=== PATIENT | female | born 1990 | race Caucasian/White ===

== ENCOUNTER 2019-06-29 01:04 | Outpatient (CLI) | payer SELFPAY ==
--- NOTE | 2019-06-29 08:00 | DI.US_ITS ---
EXAM: US PELVIS TRANSVAGINAL CLINICAL HISTORY: IUD PLACEMENT, MIRENA PLACED 2014, ON EXAM NO STRINGS, MILD PELVIC PAIN. TECHNIQUE: Ultrasound performed using standard protocol. COMPARISON: No exams were available for comparison FINDINGS: The uterus measures 8.5 cm in length, 4.4 cm in height and 7.2 cm in width with an endometrial stripe thickness of 3.1 mm. IUD is noted in the endometrial cavity, strings are identified in the lower ut erine segment and cervix. Right ovary measures 3 x 1.5 x 1.6 cm. The left ovary 2.6 x 2.1 x 1.7 cm. There is a small quantity of free fluid in the cul-de-sac. IMPRESSION: Intrauterine IUD is noted in good position, the strings end in the proximal portion the cervix.
== END 2019-06-29 01:24 ==
PROVIDERS: PCP Internal Medicine; Visit Provider Nurse Practitioner Women's Health
DX: R10.2 Pelvic and perineal pain (principal); Z30.431 Encounter for routine checking of intrauterine contraceptive device
CPT/HCPCS: 76830; 76856

== ENCOUNTER 2020-08-30 20:26 | Outpatient (REF) | payer SELFPAY ==
[2020-09-02 15:56] LABS: COVID-19 RT-PCR Result NEGATIVE (Negative)
== END 2020-08-30 20:46 ==
LOC: NCHCN 20:26
PROVIDERS: PCP Internal Medicine; Visit Provider Nurse Practitioner Family
DX: Z11.59 Encounter for screening for other viral diseases (principal)
CPT/HCPCS: U0003

== ENCOUNTER 2022-01-25 18:40 | Outpatient (REF) | payer SELFPAY ==
[2022-01-25 19:20] LABS: TSH (W/Ref FT4) 0.92 uIU/mL (0.36-3.74)
== END 2022-01-25 18:41 | disposition home or self-care (01) ==
LOC: NCHCN 18:40
PROVIDERS: PCP Internal Medicine; Visit Provider Physician Assistant
DX: R63.5 Abnormal weight gain (principal); R68.89 Other general symptoms and signs
CPT/HCPCS: 84443

== ENCOUNTER 2023-11-13 13:00 | Outpatient (REF) | payer BC, SELFPAY | END 2023-11-13 13:01 | disposition home or self-care (01) | LOC: NCHCN 13:00 | PROVIDERS: PCP Internal Medicine; Visit Provider Physician Assistant | DX: R10.31 Right lower quadrant pain (principal) | CPT/HCPCS: 87086 ==

== ENCOUNTER 2023-12-19 10:04 | Outpatient (REF) | payer BC, SELFPAY ==
[2023-12-19 11:37] LABS: Bilirubin Negative (Negative); Blood Negative (Negative); Clarity Clear (Clear); Glucose Negative (Negative); Ketones Negative (Negative); Leukocyte Esterase Small (Negative); Nitrite Negative (Negative); Urobilinogen 0.2 mg/dL (Up to 0.2)
[2023-12-19 11:54] LABS: Bacteria Few HPF (Negative); C & S Indicated? No; Casts Negative LPF (Negative); Crystals Negative HPF (Negative); Epithelial Cells Few HPF (Negative); Mucus Negative (Negative); Other Cells Negative (Negative); RBC Negative HPF (0-2)
== END 2023-12-19 10:05 | disposition home or self-care (01) ==
LOC: LBN 10:04
PROVIDERS: PCP Internal Medicine; Visit Provider Nurse Practitioner Gerontology
DX: N39.0 Urinary tract infection, site not specified (principal); N20.0 Calculus of kidney
CPT/HCPCS: 81003; 81015; 87086

== ENCOUNTER 2024-01-24 14:43 | Outpatient (REF) | payer BC, SELFPAY ==
[2024-01-24 19:03] LABS: Abs Immature Grans 0.02 10^3/uL (0.0-0.06); Absolute Basophil Count 0.02 10^3/uL (0.0-0.2); Absolute Eosinophil Count 0.15 10^3/uL (0.0-0.7); Absolute Lymphocyte Count 2.06 10^3/uL (1.2-3.4); Absolute Monocyte Count 0.41 10^3/uL (0.1-0.8); Absolute Neutrophil Count 3.16 10^3/uL (1.2-6.7); Basophils % 0.3 %; Eosinophils % 2.6 %; HCT 43.1 % (36.0-46.0); HGB 14.4 g/dL (11.2-15.7); Immature Grans % 0.3 %; Lymphocytes % 35.4 %; MCH 31.4 pg (27.0-33.0); MCHC 33.4 % (32.0-36.0); MCV 94 fL (80-95); MPV 10.1 fL (8.0-11.0); Neutrophils % 54.4 %; Platelet Count 275 10^3/uL (130-400); RBC 4.58 10^6/uL (3.93-5.22); RDW 11.5 % (11.7-14.6); RDW-SD 39.3 fL; WBC 5.82 10^3/uL (4.4-10.8)
[2024-01-24 19:27] LABS: Iron 112 ug/dL (50-170); Total Iron Binding Capacity 224 ug/dL (250-450); Transferrin Sat 50 % (15-50)
[2024-01-24 19:34] LABS: Hemoglobin A1C 5.8 % (<5.7)
[2024-01-24 19:47] LABS: Vitamin D 25 Total 36.3 ng/mL (30-100)
[2024-01-24 19:51] LABS: Calculated LDL 66 mg/dL (<100); Cholesterol 119 mg/dL (<200); Ferritin 97 ng/mL (8-252); Folate 10.1 ng/mL (8.6-20.0); HDL Cholesterol 40 mg/dL (40-60); Magnesium 1.9 mg/dL (1.8-2.4); TSH (W/Ref FT4) 0.58 uIU/mL (0.36-3.74); Triglyceride 69 mg/dL (<150); Vitamin B12 416 pg/mL (193-986)
[2024-01-24 20:38] LABS: ALT 51 U/L (14-59); AST 23 U/L (15-37); Albumin 3.9 g/dL (3.4-5.0); Alkaline Phosphatase 73 U/L (46-116); Anion Gap 10.4 mmol/L (3-11); BUN 16 mg/dL (7-18); Bilirubin, Total 0.4 mg/dL (0.2-1.0); CO2 25.6 mmol/L (21.0-32.0); CREATININE 0.7 mg/dL (0.55-1.02); Calcium 8.7 mg/dL (8.5-10.1); Chloride 106 mmol/L (98-107); Estimated GFR 115.59 (mL/min/1.73m2); Glucose 95 mg/dL (74-106); Potassium 3.9 mmol/L (3.5-5.1); Sodium 142 mmol/L (136-145); Total Protein 7.4 g/dL (6.4-8.2)
== END 2024-01-24 14:44 | disposition home or self-care (01) ==
LOC: NCHCN 14:43
PROVIDERS: PCP Internal Medicine; Visit Provider Physician Assistant
DX: Z13.220 Encounter for screening for lipoid disorders (principal); G25.81 Restless legs syndrome; Z13.1 Encounter for screening for diabetes mellitus; R53.83 Other fatigue
CPT/HCPCS: 80053; 80061; 82306; 82607; 82728; 82746; 83036; 83540; 83550; 83735; 84443; 85025

== ENCOUNTER 2025-02-09 08:45 | Outpatient (REF) | payer OTHER, SELFPAY ==
[2025-02-09 19:42] LABS: ALT 25 U/L (14-59); AST 17 U/L (15-37); Alkaline Phosphatase 76 U/L (46-116); Anion Gap 10.8 mmol/L (3-11); BUN 20 mg/dL (7-18); Bilirubin, Total 0.6 mg/dL (0.2-1.0); CO2 26.2 mmol/L (21.0-32.0); CREATININE 0.8 mg/dL (0.55-1.02); Calcium 9.3 mg/dL (8.5-10.1); Chloride 105 mmol/L (98-107); Estimated GFR 97.87 (mL/min/1.73m2); Glucose 124 mg/dL (74-106); Potassium 3.9 mmol/L (3.5-5.1); Sodium 142 mmol/L (136-145); Total Protein 7.9 g/dL (6.4-8.2)
== END 2025-02-09 08:46 | disposition home or self-care (01) ==
LOC: NCHCN 08:45
PROVIDERS: PCP Internal Medicine; Visit Provider Nurse Practitioner Family
DX: R73.03 Prediabetes (principal)
CPT/HCPCS: 80053